=== PATIENT | female | born 2000 | race Caucasian/White ===

== ENCOUNTER 2021-08-06 08:48 | Emergency (ER) | payer BC ==
[2021-08-06] MEDS ORDERED: Sodium Chloride 0.9% 1,000 ML IV STA (09:32)
[2021-08-06] MEDS ORDERED: Sodium Chloride 0.9% 10 ML Syringe FLUSH PRN (09:32)
[2021-08-06] MEDS ORDERED: Ondansetron 4 MG/2 ML SDV IVPUSH ONE (09:32)
[2021-08-06 10:48] LABS: CORONAVIRUS COVID-19 NAA NEGATIVE (NEGATIVE)
== END 2021-08-06 12:41 | disposition home or self-care (01) ==
LOC: JD.ED 08:48
DX: J02.8 Acute pharyngitis due to other specified organisms (principal); R11.2 Nausea with vomiting, unspecified; Z20.822 Contact with and (suspected) exposure to COVID-19
CPT/HCPCS: 0240U; 36415; 80053; 83690; 85025; 86308; 87651; 96374; 99284; J2405; J7030

== ENCOUNTER 2021-10-01 16:09 | Emergency (ER) | payer BC ==
[2021-10-01] MEDS ORDERED: Sodium Chloride 0.9% 1,000 ML IV STA (16:48)
[2021-10-01] MEDS ORDERED: Ondansetron 4 MG/2 ML SDV IVPUSH ONE (16:48)
[2021-10-01] MEDS ORDERED: HYDROmorphone 0.5 MG/0.5 ML Syringe IVPUSH ONE (16:52)
[2021-10-01] MEDS: Sodium Chloride 0.9% 10 ML Syringe FLUSH PRN ×2 (17:15→18:28)
[2021-10-01] MEDS ORDERED: Iopamidol 612 MG/ML 100 ML Bottle IVPUSH ONE (17:18)
[2021-10-01] MEDS ORDERED: Iopamidol 612 MG/ML 50 ML SDV IVPUSH ONE (17:18)
== END 2021-10-01 19:37 | disposition home or self-care (01) ==
LOC: JD.ED 16:09
DX: R10.84 Generalized abdominal pain (principal); N83.202 Unspecified ovarian cyst, left side; R11.2 Nausea with vomiting, unspecified; F17.210 Nicotine dependence, cigarettes, uncomplicated; Z79.899 Other long term (current) drug therapy
CPT/HCPCS: 36415; 74177; 80053; 83690; 84703; 85025; 86140; 86308; 96374; 96375; 99284; J1170; J2405; J3490; J7030; Q9967

== ENCOUNTER 2022-06-05 14:33 | Emergency (ER) | payer BC | END 2022-06-05 18:30 | LOC: JD.ED 14:33 | DX: Z53.21 Procedure and treatment not carried out due to patient leaving prior to being seen by health care provider (principal) ==